=== PATIENT | female | born 1990 | race Two or more races ===

== ENCOUNTER 2018-07-13 19:16 | Emergency (ER) | payer BC ==
[2018-07-13 19:22] VITALS: BP 132/89; PULSE 68; RESP 16; TEMP 98.1; O2SAT 100
--- NOTE | 2018-07-13 19:50 | ED PDOC ---
HPI: Psych/Substance Abuse Time Seen by Provider: 07/13/18 19:30 Chief Complaint (Nursing): Psychiatric Evaluation Chief Complaint (Provider): crisis eval History Per: Patient, EMS (As per EMS, a belt was noted at the head of the bed that may possibly resemble costa on patients neck) History/Exam Limitations: no limitations Onset/Duration Of Symptoms: Intermittent Episodes, Other (Pt reports having symptoms of depression for several years. never seeked mental health services in the past. ) Suicide/Self Injury Attempted (Context): None Modifying Factor(s): None Severity: Moderate Associated Symptoms: Anxiety, Depression Involuntary Hold By: None Additional History Per: Patient Additional Complaint(s): 28y/o female brought in by ems for crisis evaluation after pt had a panic attack. Pt verbalizes she has been in a dark place for since she was a teenager and does not reacll last time she was not in a "dark place". Pt reports she believes she is suffering from "depression" but has never seen or seeked mental health services in the past. pt verbalizes she is under alot of stress a home and at work. Pt reports she is and has no children. Pt verbalzies she has an argument with her this evening that triggered panic attack. as per per there is no physical/sexual/verbal abuse going on at home and she feels safe at home. Pt denies alcohol/drug use and denies previous med hx. As per ems it was noted a belt on head board that may have resemble markings on pt neck. Pt denies SI or attempt/HI. Past Medical History Reviewed: Historical Data, Nursing Documentation, Vital Signs Vital Signs: Last Vital Signs Temp 98.1 F 07/13/18 19:20 Pulse 68 07/13/18 19:20 Resp 16 07/13/18 19:20 BP 132/89 07/13/18 19:20 Pulse Ox 100 07/13/18 19:20 - Surgical History Surgical History: No Surg Hx - Family History Family History: States: Unknown Family Hx - Living Arrangements Living Arrangements: With Family () - Social History Current smoker - smoking cessation education provided: No Ex-Smoker (has not smoked in the last 12 months): No Alcohol: None Drugs: Denies - Immunization History Hx Tetanus Toxoid Vaccination: No Hx Influenza Vaccination: No Hx Pneumococcal Vaccination: No - Home Medications Home Medications: Ambulatory Orders Medication Instructions Recorded No Known Home Med 05/15/17 - Allergies Allergies/Adverse Reactions: Allergies Allergy/AdvReac Type Severity Reaction Status Date / Time No Known Allergies Allergy Verified 07/13/18 19:20 Review of Systems ROS Statement: Except As Marked, All Systems Reviewed And Found Negative Psych: Positive for: Depression (pt reports depression for several years, feels like she has been in a "dark place" for a while now. Pt reports she does not remember the last time she wasnt in a dark place. ) Physical Exam - Reviewed Nursing Documentation Reviewed: Yes Vital Signs Reviewed: Yes - Physical Exam Appears: Positive for: Well, Non-toxic, No Acute Distress Head Exam: Positive for: ATRAUMATIC, NORMAL INSPECTION, NORMOCEPHALIC Skin: Positive for: Normal Color, Warm, Dry (Noted small red spots to neck, when patient questioned about finding pt reports it was from scratching. ) Eye Exam: Positive for: EOMI, Normal appearance, PERRL ENT: Positive for: Normal ENT Inspection Neck: Positive for: Normal, Painless ROM Cardiovascular/Chest: Positive for: Regular Rate, Rhythm Respiratory: Positive for: CNT, Normal Breath Sounds Gastrointestinal/Abdominal: Positive for: Normal Exam, Soft Back: Positive for: Normal Inspection Extremity: Positive for: Normal ROM Neurological/Psych: Positive for: Awake, Alert, Normal Tone, Other (pt is tearful, sullen, poor eye contact ) - Laboratory Results Result Diagrams: 07/13/18 22:16 07/13/18 22:16 Urine POC: Negative - ECG O2 Sat by Pulse Oximetry: 100 - Progress ED Course And Treament: -UA -Upreg -urine drug screen -Cbc -Cmp 1936: Pt referred for crisis eval 22:41: crisis eval complete, Pt stable for d/c as per Dr. Perkins from psych service. [facility]. Pt is to report to [facility] tomorrow. Pt informed of decison. Pt verbalizes understanding. Pt given precautions to return to ED. Disposition - Clinical Impression Clinical Impression: Depression - Patient ED Disposition Is Patient to be Admitted: No Counseled Patient/Family Regarding: Diagnosis - Disposition Referrals: [facility] [Outside] Disposition: Routine/Home Disposition Time: 10:41 Condition: GOOD Instructions: Depression, Adult (DC) Print Language: GU[place]EMAL[place] - POA Present On Arrival: None
[2018-07-13 21:27] LABS: SQUAMOUS EPITHIAL 3 /hpf (0-5); URINE BILIRUBIN NEGATIVE (NEGATIVE); URINE BLOOD NEGATIVE (NEGATIVE); URINE CLARITY SLIGHTY-CLOUDY (Clear); URINE COLOR YELLOW (YELLOW); URINE GLUCOSE (UA) NEG (NEGATIVE); URINE LEUKOCYTE ESTERASE NEG Leu/uL (Negative); URINE PROTEIN NEGATIVE (NEGATIVE); URINE UROBILINOGEN 0.2-1.0 mg/dL (0.2-1.0)
[2018-07-13 22:20] LABS: BASO % 0.4 % (0.0-2.0); EOS # 0.1 K/uL (0.0-0.7); EOS % 1.2 % (0.0-4.0); HEMOGLOBIN 12.8 g/dL (12.0-16.0); LYMPH # 2.4 K/uL (1.0-4.3); LYMPH % 24.4 % (20.0-40.0); MEAN CELL VOLUME 90.4 fl (81.0-99.0); MEAN CORPUSCULAR HEMOGLOBIN 29.7 pg (27.0-31.0); MEAN CORPUSCULAR HGB CONC 32.9 g/dL (33.0-37.0); MEAN PLATELET VOLUME 10.6 fl (7.2-11.7); MONO # 0.7 K/uL (0.0-0.8); MONO % 6.9 % (0.0-10.0); NEUT # 6.7 K/uL (1.8-7.0); NEUT % 67.1 % (50.0-75.0); RBC 4.31 Mil/uL (3.80-5.20); RED CELL DISTRIBUTION WIDTH 13.1 % (11.5-14.5); WHITE BLOOD COUNT 9.9 K/uL (4.8-10.8)
[2018-07-13 22:29] LABS: BARBITURATES, UR NEGATIVE (NEGATIVE); BENZODIAZEPINES, UR NEGATIVE (NEGATIVE); OPIATES, UR NEGATIVE (NEGATIVE); PHENCYCLIDINE, UR NEGATIVE (NEGATIVE)
[2018-07-13 22:31] LABS: ALB/GLOB RATIO 1.5 (1.0-2.1); ALBUMIN 4.3 g/dL (3.5-5.0); ALT/SGPT 32 U/L (9-52); AST/SGOT 28 U/L (14-36); BLOOD UREA NITROGEN 15 mg/dl (7-17); CALCIUM 9.3 mg/dL (8.4-10.2); GFR NON-AFRICAN AMERICAN > 60
== END 2018-07-13 23:15 | disposition home or self-care (01) ==
LOC: H.ER 19:16
DX: F32.9 Major depressive disorder, single episode, unspecified (principal)
CPT/HCPCS: 80053; 81003; 81025; 85025; 99282; G0480